=== PATIENT | female | born 1940 | race Caucasian/White ===

== ENCOUNTER 2021-05-23 09:30 | Observation (INO) ==
--- NOTE | 2021-05-23 09:33 | Emergency Department Note ---
Course Vital Signs Vital signs: Vital Signs Temperature 96.9 F L 05/23/21 09:30 Pulse Rate 83 05/23/21 09:30 Respiratory Rate 16 05/23/21 09:30 Blood Pressure 137/74 05/23/21 09:30 Pulse Oximetry (%) 98 05/23/21 09:30 Temperature 96.9 F L 05/23/21 09:30 Pulse Rate 83 05/23/21 09:30 Respiratory Rate 16 05/23/21 09:30 Blood Pressure 137/74 05/23/21 09:30 Pulse Oximetry (%) 98 05/23/21 09:30 MDM MDM Narrative Medical decision making narrative: Narrative: Medical Records Medical records reviewed: Yes I reviewed the patient's medical records. Lab Data Lab results reviewed: Yes I reviewed the patient's lab results. Radiology Data Radiology results reviewed: Yes I reviewed the patient's radiology results. Discharge Plan Patient/Caregiver Discharge Instructions Prescriptions: No Action No Known Home Meds RF: 0
[2021-05-23] MEDS ORDERED: 0.9 % SODIUM CHLORIDE 1,000 ML IV ONE (09:55)
[2021-05-23] MEDS ORDERED: FAMOTIDINE/PF 20 MG/2 ML VIAL IV ONE (09:57)
--- NOTE | 2021-05-23 10:23 | Emergency Department Note ---
Nausea/Vomiting/Diarrhea HPI General Chief complaint: Nausea/Vomiting/Diarrhea Stated complaint: diarrhea x5 days Time Seen by Provider: 05/23/21 09:31 Source: patient, family, RN notes reviewed and old records reviewed Mode of arrival: ambulatory Limitations: no limitations History of Present Illness HPI Narrative: Narrative: 80-year-old female complaining of diarrhea x5 days she states that she has 3-5 episodes of black diarrhea per day worse at nighttime she denies any fevers or chills any nausea or vomiting any dizziness weakness or lightheadedness. She denies any abdominal pain he denies any bright red blood per rectum has had this in the past. She denies any hematuria dysuria or frequency. She takes 2-4 Advil per day. MD complaint: diarrhea Onset (ago): day(s) (5) Description of Diarrhea: other (Black) Associated Abdominal Pain: No Severity: moderate Consistency: intermittent Improves with: none Worsens with: bowel movement Associated symptoms: Denies myalgias, chest pain, cough, diaphoresis, fever/chills, headaches, loss of appetite, malaise, nausea/vomiting, rash, dysuria, shortness of breath, syncope and weakness Related Data Home Medications Medication Instructions Recorded Confirmed No Known Home Meds 05/23/21 05/23/21 Allergies Allergy/AdvReac Type Severity Reaction Status Date / Time No Known Drug Allergies Allergy Verified 05/23/21 09:32 Review of Systems ROS ROS Narrative: Narrative: All systems ED: reviewed and negative except as stated. PFSH Narrative Patient History Narrative: Narrative: Medical/Surgical/Family History All Active Problems (Updated 05/23/21 @ 14:18 by Joss Levy MD) Upper GI bleed (Acute) Social History Smoking Status: Current every day smoker Exam Narrative Narrative: Narrative: General Limitations: no limitations General appearance: Present alert, in no apparent distress and thin Head Head: Present atraumatic, normocephalic and normal inspection Eye Eye: Present normal appearance, PERRL and EOMI; Absent scleral icterus and conjunctival injection ENT ENT: Present normal exam, normal oropharynx and mucous membranes moist Neck Neck: Present normal inspection, full ROM and trachea midline; Absent lymphadenopathy and thyromegaly Chest Chest: Present normal inspection and symmetric chest wall rise Respiratory Respiratory: Present normal lung sounds bilaterally; Absent respiratory distress, wheezes, stridor, accessory muscle use and prolonged expiratory phase Cardiovascular Cardiovascular: Present regular rate and normal rhythm; Absent systolic murmur and diastolic murmur Adbominal Abdominal: Present soft; Absent distention, tenderness, guarding, rebound, rigidity, organomegaly and mass Rectal Rectal: Present normal inspection, normal rectal tone, heme (+) stool and black stool Extremities Extremities: Absent pedal edema, pretibial edema and calf tenderness Back Back: Present normal inspection and full ROM; Absent tenderness, CVA tenderness (R), CVA tenderness (L) and spinous process tenderness Neurological Neurological: Present alert, oriented X3 and normal gait Psychiatric Psychiatric: Present normal affect and normal mood Skin Skin: Present warm (WNL) and dry Course Vital Signs Vital signs: Vital Signs Temperature 96.9 F L 05/23/21 09:30 Pulse Rate 83 05/23/21 09:30 Respiratory Rate 16 05/23/21 09:30 Blood Pressure 137/74 05/23/21 09:30 Pulse Oximetry (%) 98 05/23/21 09:30 Temperature 98.0 F 05/23/21 12:38 Pulse Rate 79 05/23/21 12:38 Respiratory Rate 16 05/23/21 12:38 Blood Pressure 138/71 05/23/21 12:38 Pulse Oximetry (%) 98 05/23/21 12:38 MDM MDM Narrative Medical decision making narrative: Narrative: 80-year-old female came in complaining of black diarrhea. She was melanotic and strongly guaiac positive stool on rectal exam. Her hemoglobin and hematocrit were stable. Patient's BUN was 29 I believe this is more reflective of digested blood then of dehydration hemodynamically she was stable I discussed the patient with Dr. Kevin Loomis who graciously agreed to evaluate her in the emergency department for EGD. Differential Diagnosis Differential Diagnosis: UGIB, LGIB, gastritis, gastroenteritis, SBO Medical Records Medical records reviewed: Yes I reviewed the patient's medical records. Lab Data Lab results reviewed: Yes I reviewed the patient's lab results. Result diagrams: 05/23/21 10:05 05/23/21 10:05 Labs: Lab Results 05/23/21 05/23/21 05/23/21 Range/Units 10:05 10:05 10:05 WBC 11.0 (4.5-11.0) K/mcL RBC 4.18 (4.00-5.20) M/mcL Hgb 12.7 (12.0-15.0) g/dL Hct 37.9 (36.0-48.0) % MCV 90.7 (80.0-100.0) fL MCH 30.4 (26.0-34.0) pg MCHC 33.5 (31.0-36.0) g/dL RDW 13.2 (11.5-14.5) % Plt Count 304 (140-440) K/mcL MPV 10.6 H (7.4-10.4) fL Neut % (Auto) 73.3 (38.0-78.0) % Lymph % (Auto) 18.8 (15.0-49.0) % [place] % (Auto) 7.0 (1.0-12.0) % Eos % (Auto) 0.5 (0.0-7.0) % Baso % (Auto) 0.4 (0.0-2.0) % Lymph # (Auto) 2.07 (1.50-4.80) K/mcL [place] # (Auto) 0.77 (0.10-0.90) K/mcL Eos # (Auto) 0.06 (0.00-0.70) K/mcL Baso # (Auto) 0.04 (0.00-0.20) K/mcL Absolute Neutrophils 8.10 H (1.80-8.00) K/mcL PT 13.5 (11.9-14.5) sec INR 1.0 (0.9-1.1) VBG Lactic Acid (0.5-2.0) mmol/L Sodium 137 (133-145) mmol/L Potassium 3.0 L (3.3-5.1) mmol/L Chloride 103 (96-108) mmol/L Carbon Dioxide 23 (22-30) mmol/L Anion Gap 11.0 (8.0-16.0) BUN 29 H (8-23) mg/dL Creatinine 1.0 (0.6-1.1) mg/dL GFR Calculation 53 Glucose 131 H (70-105) mg/dL Calcium 9.1 (8.6-10.4) mg/dL Total Bilirubin 0.3 (0.1-1.0) mg/dL AST 22 (<32) U/L ALT 12 (<40) U/L Alkaline Phosphatase 40 (39-117) U/L Total Protein 6.3 (5.9-8.4) gm/dL Albumin 3.9 (3.2-5.2) gm/dL Globulin 2.4 (2.2-3.7) gm/dL Albumin/Globulin Ratio 1.6 (1.0-2.3) Lipase 35 (7-60) U/L Urine Color Urine Appearance (Clear) Urine pH (5.0-9.0) Ur Specific [place] (1.000-1.035) Urine Protein (Negative) mg/dL Urine Glucose (UA) (Negative) mg/dL Urine Ketones (Negative) mg/dL Urine Occult Blood (Negative) mg/dL Urine Nitrate (Negative) Urine Bilirubin (Negative) mg/dL Urine Urobilinogen mg/dL Ur Leukocyte Esterase (Negative) /ug Urine RBC (0-3) /hpf Urine WBC (0-4) /hpf Ur Squamous Epith Cells (0-4) /hpf Urine Bacteria (0) /hpf Hyaline Casts (0-2) /lph Urine Mucus (None) /hpf 05/23/21 05/23/21 Range/Units 10:05 10:50 WBC (4.5-11.0) K/mcL RBC (4.00-5.20) M/mcL Hgb (12.0-15.0) g/dL Hct (36.0-48.0) % MCV (80.0-100.0) fL MCH (26.0-34.0) pg MCHC (31.0-36.0) g/dL RDW (11.5-14.5) % Plt Count (140-440) K/mcL MPV (7.4-10.4) fL Neut % (Auto) (38.0-78.0) % Lymph % (Auto) (15.0-49.0) % [place] % (Auto) (1.0-12.0) % Eos % (Auto) (0.0-7.0) % Baso % (Auto) (0.0-2.0) % Lymph # (Auto) (1.50-4.80) K/mcL [place] # (Auto) (0.10-0.90) K/mcL Eos # (Auto) (0.00-0.70) K/mcL Baso # (Auto) (0.00-0.20) K/mcL Absolute Neutrophils (1.80-8.00) K/mcL PT (11.9-14.5) sec INR (0.9-1.1) VBG Lactic Acid 0.8 (0.5-2.0) mmol/L Sodium (133-145) mmol/L Potassium (3.3-5.1) mmol/L Chloride (96-108) mmol/L Carbon Dioxide (22-30) mmol/L Anion Gap (8.0-16.0) BUN (8-23) mg/dL Creatinine (0.6-1.1) mg/dL GFR Calculation Glucose (70-105) mg/dL Calcium (8.6-10.4) mg/dL Total Bilirubin (0.1-1.0) mg/dL AST (<32) U/L ALT (<40) U/L Alkaline Phosphatase (39-117) U/L Total Protein (5.9-8.4) gm/dL Albumin (3.2-5.2) gm/dL Globulin (2.2-3.7) gm/dL Albumin/Globulin Ratio (1.0-2.3) Lipase (7-60) U/L Urine Color Yellow Urine Appearance Hazy A (Clear) Urine pH 6.0 (5.0-9.0) Ur Specific [place] 1.013 (1.000-1.035) Urine Protein Neg (Negative) mg/dL Urine Glucose (UA) Neg (Negative) mg/dL Urine Ketones Neg (Negative) mg/dL Urine Occult Blood Neg (Negative) mg/dL Urine Nitrate Neg (Negative) Urine Bilirubin Neg (Negative) mg/dL Urine Urobilinogen Neg mg/dL Ur Leukocyte Esterase Neg (Negative) /ug Urine RBC 2 (0-3) /hpf Urine WBC 3 (0-4) /hpf Ur Squamous Epith Cells 5 H (0-4) /hpf Urine Bacteria None (0) /hpf Hyaline Casts 4 H (0-2) /lph Urine Mucus Few A (None) /hpf ED POC Tests ED POC Tests: CORNELIUS - SARS Antigen Negative EKG Data EKG #1: EKG attestation: Yes I reviewed and interpreted this EKG. EKG shows normal: sinus rhythm Rate: normal (73) Rhythm: NSR [place]/QRS: normal Heart block present: None ST segment elevation in: None ST segment depression in: None Q waves: None T wave inversions noted in: None Hyperacute T waves: None QTc: normal QRS morphology: Present normal Interpretation: normal EKG Pulse Oximetry Data Pulse Ox %: 98 Interpretation: 98% on room air within normal limits Discharge Plan Patient/Caregiver Discharge Instructions Pt seen by EMB[employer] SYSTEM[employer] SOFTWARE ENGINEER/PA only: No Clinical Impression: Upper GI bleed Patient Disposition: Xfer As Outpt/Obs ([facility]) Condition: Fair Discharge Date/Time: 05/23/21 11:52
[2021-05-23 10:51] LABS: Basophils # (Auto) 0.04 K/mcL (0.00-0.20); Basophils % (Auto) 0.4 % (0.0-2.0); Eosinophils # (Auto) 0.06 K/mcL (0.00-0.70); Eosinophils % (Auto) 0.5 % (0.0-7.0); Hematocrit 37.9 % (36.0-48.0); Hemoglobin 12.7 g/dL (12.0-15.0); Lymphocytes # (Auto) 2.07 K/mcL (1.50-4.80); Lymphocytes % (Auto) 18.8 % (15.0-49.0); Mean Cell Volume 90.7 fL (80.0-100.0); Mean Corpuscular HGB Conc 33.5 g/dL (31.0-36.0); Mean Platelet Volume 10.6 fL (7.4-10.4); Monocytes # (Auto) 0.77 K/mcL (0.10-0.90); Neutrophils % (Auto) 73.3 % (38.0-78.0); Platelet Count 304 K/mcL (140-440); RBC 4.18 M/mcL (4.00-5.20); Red Cell Distribution Width 13.2 % (11.5-14.5)
[2021-05-23 11:16] LABS: ALT/SGPT 12 U/L (<40); AST/SGOT 22 U/L (<32); Albumin 3.9 gm/dL (3.2-5.2); Albumin/Globulin Ratio 1.6 (1.0-2.3); Alkaline Phosphatase 40 U/L (39-117); Bilirubin,Total 0.3 mg/dL (0.1-1.0); Blood Urea Nitrogen 29 mg/dL (8-23); Calcium 9.1 mg/dL (8.6-10.4); Carbon Dioxide 23 mmol/L (22-30); Chloride 103 mmol/L (96-108); Globulin 2.4 gm/dL (2.2-3.7); Glomerular Filtration Rate 53; Glucose 131 mg/dL (70-105); Prothrombin Time 13.5 sec (11.9-14.5)
--- NOTE | 2021-05-23 12:07 | General Surg History&Physical ---
HPI History of Present Illness Patient information: Note initiated : 05/23/21 at 12:04 pm Service Date, if different from initiated Date: [] Patient: Gabriela Middleton 80 y/o F admitted on for diarrhea x5 days. Chief Complaint: Nausea, emesis with diarrhea and dark stools History of present illness: Ms. Middleton is a 80 year old F who was in her normal state of health until several days ago when she started having crampy upper abdominal pain and dark diarrhea. She reports that she is never had anything like this before. Its been intermittent over the last 5 days. She presented to the emergency room where her stools are guaiac positive, dark and melanotic. This is most consistent with an upper GI bleed. She denies any fevers or chills. She does not recall when her last colorectal screening was, she reports not having had a EGD at all in the past. She does report daily use of NSAIDs. Review of Systems Review of systems: All systems are reviewed, negative other than above PFSH PFSH All Active Problems Upper GI bleed (Acute) MEDS/ALLERGIES Home Medications and Allergies Home Medications Medication Instructions Recorded Confirmed Type No Known Home Meds 05/23/21 05/23/21 History Allergies Allergy/AdvReac Type Severity Reaction Status Date / Time No Known Drug Allergies Allergy Verified 05/23/21 09:32 Physical Examination Vital Signs Vital signs: Temp Pulse Resp BP Pulse Ox 96.9 F L 72 16 130/66 99 05/23/21 09:38 05/23/21 11:31 05/23/21 09:38 05/23/21 11:31 05/23/21 11:31 General physical appearance General physical exam: well developed, well nourished and no distress Eyes Eye exam: PERRL and normal ocular movement ENT ENT exam: normal pinna, normal nares, normal mucosa, no hearing loss and no congestion Head Head exam IM: Present atraumatic and normocephalic Neck Neck exam: no masses, no bruits, trachea midline, no lymphadenopathy and no venous distension Cardiovascular Cardiovascular exam IM: Present normal rate and rhythm Respiratory Respiratory exam: normal expansion, normal respiratory effort, clear to percussion and clear to auscultation Abdomen Abdomen: Present soft, non tender and bowel sounds Hernia: Present none Genitourinary Genitourinary (Female): Present normal external genitalia Rectum Rectum: Present normal sphincter tone, no hemorrhoids, no tenderness, no masses and no bleeding Integumentary Integumentary: Present no rash, no growths and no abnormal pigmentation Neurologic Neurologic: Present normal coordination and normal sensation Musculoskeletal Musculoskeletal: Present normal gait and normal posture Psychiatric Psychiatric: Present oriented to time, oriented to person, oriented to place, speech is normal and memory intact Results Labs Result diagrams: 05/23/21 10:05 05/23/21 10:05 Labs: Abnormal lab results 05/23/21 05/23/21 Range/Units 10:05 10:05 MPV 10.6 H (7.4-10.4) fL Absolute Neutrophils 8.10 H (1.80-8.00) K/mcL Potassium 3.0 L (3.3-5.1) mmol/L BUN 29 H (8-23) mg/dL Glucose 131 H (70-105) mg/dL Diabetes panel 05/23/21 Range/Units 10:05 Sodium 137 (133-145) mmol/L Potassium 3.0 L (3.3-5.1) mmol/L Chloride 103 (96-108) mmol/L Carbon Dioxide 23 (22-30) mmol/L BUN 29 H (8-23) mg/dL Creatinine 1.0 (0.6-1.1) mg/dL Glucose 131 H (70-105) mg/dL Calcium 9.1 (8.6-10.4) mg/dL AST 22 (<32) U/L ALT 12 (<40) U/L Alkaline Phosphatase 40 (39-117) U/L Total Protein 6.3 (5.9-8.4) gm/dL Albumin 3.9 (3.2-5.2) gm/dL Calcium panel 05/23/21 Range/Units 10:05 Calcium 9.1 (8.6-10.4) mg/dL Albumin 3.9 (3.2-5.2) gm/dL Pituitary panel 05/23/21 Range/Units 10:05 Sodium 137 (133-145) mmol/L Potassium 3.0 L (3.3-5.1) mmol/L Chloride 103 (96-108) mmol/L Carbon Dioxide 23 (22-30) mmol/L BUN 29 H (8-23) mg/dL Creatinine 1.0 (0.6-1.1) mg/dL Glucose 131 H (70-105) mg/dL Calcium 9.1 (8.6-10.4) mg/dL Adrenal panel 05/23/ Range/Units 10:05 Sodium 137 (133-145) mmol/L Potassium 3.0 L (3.3-5.1) mmol/L Chloride 103 (96-108) mmol/L Carbon Dioxide 23 (22-30) mmol/L BUN 29 H (8-23) mg/dL Creatinine 1.0 (0.6-1.1) mg/dL Glucose 131 H (70-105) mg/dL Calcium 9.1 (8.6-10.4) mg/dL Total Bilirubin 0.3 (0.1-1.0) mg/dL AST 22 (<32) U/L ALT 12 (<40) U/L Alkaline Phosphatase 40 (39-117) U/L Total Protein 6.3 (5.9-8.4) gm/dL Albumin 3.9 (3.2-5.2) gm/dL All other labs normal. A/P Assessment and plan (1) Upper GI bleed: Status: Acute Narrative A/P Narrative: This is a pleasant 80-year-old female who presents hemodynamically stable with normal H&H with 5 days of dark melanotic bloody stools. Discussed with her the possibility of an upper GI bleed and the need to do an EGD to rule out sources. She verbalizes understanding, all questions are answered and she desires. Plan: EGD, admit for observation with repeat H&H in the a.m., possible need for colonoscopy depending on findings of EGD. Thank you very much for this consultation. Time Spent With Patient Time: Total time spent is greater than 50% in coordination of care (as documented) at patient's floor/unit and/or counseling patient:
[2021-05-23] MEDS ORDERED: PROPOFOL 200 MG/20 ML VIAL IV ONE (12:17)
[2021-05-23] MEDS ORDERED: PEG 3350/NA SULF,BICARB,CL/KCL 4,000 ML ORAL.SOL PO ONE (12:29)
[2021-05-23] MEDS ORDERED: ONDANSETRON 4 MG/2 ML VIAL IV PRN (12:29)
--- NOTE | 2021-05-23 12:29 | EGD Procedure Note ---
EGD Procedure Notes Procedure Information Patient information: Note initiated : 05/23/21 at 12:28 pm Service Date: Patient: Gabriela Middleton 80 y/o F admitted on for diarrhea x5 days. Pre-op diagnosis general: Upper GI bleed Post-Op Diagnosis general: No evidence of bleed Procedure: Esophogogastroduodenoscopy Procedure Narrative: After risk benefits and alternatives to the procedure were discussed with the patient at length she verbalized understanding and desire to continue with the procedure. Patient was taken to endoscopy. Surgical timeout was taken to verify patient and procedure being performed, monitored anesthesia care was poultry culler throughout the case . An adult gastroscope was entered and advanced under direct vision into the second portion of the duodenum. The antrum was fully inspected, the scope was retroflexed in the stomach. Full examination revealed full normal exam to the second portion of the duodenum, no evidence of past or current bleeding. The GE junction was at 35 cm and the esophagus was normal on full exam. Patient tolerated procedure well. Assessment: Small hiatal hernia. No evidence for bleed. Image EGD: 1. Full normal exam 2. Small hiatal hernia
[2021-05-23 12:32] LABS: Appearance,Urine HAZY (Clear); Bilirubin,Urine NEG (Negative); Color,Urine YELLOW; Glucose,Urine (UA) NEG (Negative); Ketones,Urine NEG (Negative); Leukocyte Esterase,Urine NEG /ug (Negative); Mucus,Urine FEW /hpf; Nitrate,Urine NEG (Negative); Protein,Urine NEG (Negative); Specific Gravity,Urine 1.013 (1.000-1.035); Urine Blood NEG (Negative); Urine Hyaline Cast 4 /lph (0-2); Urine RBC 2 /hpf (0-3); Urine Squamous Epithelial Cell 5 /hpf (0-4); Urine WBC 3 /hpf (0-4); Urobilinogen,Urine NEG
--- NOTE | 2021-05-23 14:43 | EKG ---
[facility] Test Date: 2021-05-23 Pat Name: Gabriela Middleton Department: ED Room: Gender: Female Automatic Clipper: sb : 1940 Requested By: Joss Levy Order Number: [id number] Reading MD: Christian Knight M.D. Measurements Intervals [place] Rate: 73 P: 40 AK: 140 QRS: -1 QRSD: 83 T: 56 QT: 401 QTc: 442 Interpretive Statements Sinus rhythm Electronically Signed On 05-23-2021 14:42:27 PDT by Christian Knight M.D. /store/[email or web address]/[id number]
[2021-05-23] MEDS: LACTATED RINGERS 1,000 ML IV SCH (14:46)
[2021-05-23] MEDS ORDERED: POTASSIUM CHLORIDE 40 MEQ in DEXTROSE 5% IN WATER 500 ML IV ONE (20:06)
[2021-05-23] MEDS ORDERED: SENNOSIDES 1 TABLET PO SCH (21:00)
[2021-05-23] MEDS: DOCUSATE SODIUM 100 MG CAPSULE PO SCH (21:03)
[2021-05-23] MEDS ORDERED: POTASSIUM CHLORIDE 20 MEQ/10 ML VIAL IV ONE (21:34)
[2021-05-24] MEDS: LACTATED RINGERS 1,000 ML IV SCH ×2 (01:42→06:49)
[2021-05-24 06:25] LABS: Basophils # (Auto) 0.06 K/mcL (0.00-0.20); Basophils % (Auto) 0.7 % (0.0-2.0); Eosinophils % (Auto) 1.1 % (0.0-7.0); Hematocrit 35.5 % (36.0-48.0); Hemoglobin 11.9 g/dL (12.0-15.0); Lymphocytes # (Auto) 1.83 K/mcL (1.50-4.80); Lymphocytes % (Auto) 20.2 % (15.0-49.0); Mean Cell Volume 91.7 fL (80.0-100.0); Mean Corpuscular HGB Conc 33.5 g/dL (31.0-36.0); Mean Platelet Volume 10.9 fL (7.4-10.4); Monocytes # (Auto) 0.72 K/mcL (0.10-0.90); Platelet Count 273 K/mcL (140-440); RBC 3.87 M/mcL (4.00-5.20); Red Cell Distribution Width 13.4 % (11.5-14.5)
[2021-05-24 06:52] LABS: Blood Urea Nitrogen 14 mg/dL (8-23); Calcium 8.7 mg/dL (8.6-10.4); Carbon Dioxide 23 mmol/L (22-30); Chloride 108 mmol/L (96-108); Glomerular Filtration Rate 81; Glucose 71 mg/dL (70-105)
[2021-05-24] MEDS: DOCUSATE SODIUM 100 MG CAPSULE PO SCH (07:21)
[2021-05-24] MEDS ORDERED: MIDAZOLAM 2 MG/2 ML VIAL IV SCH (10:45)
[2021-05-24] MEDS ORDERED: PROPOFOL 200 MG/20 ML VIAL IV SCH (10:45)
[2021-05-24] MEDS ORDERED: PROPOFOL 200 MG/20 ML VIAL IV ONE (11:36)
--- NOTE | 2021-05-24 12:00 | Colonoscopy Procedure Note ---
Colonoscopy Procedure Notes Procedure Information Patient information: Note initiated : 05/24/21 at 11:59 am Service Date: 05/23/21 Patient: Gabriela Middleton 80 y/o F admitted on 05/23/21 for diarrhea x5 days. Pre-op diagnosis general: GI bleed Post-op diagnosis general: Same Procedure: Colonoscopy Procedure narrative: After risk benefits and alternatives to the procedure were discussed with the patient at length she verbalized understanding and desire to continue with the procedure. Patient was taken to endoscopy and placed supine on the endoscopy table. Conscious sedation was administered throughout the case consisting of 50 mcg of propofol. Digital rectal exam was performed which was within normal limits other than mild external hemorrhoids without evidence of bleeding. An adult colonoscope was advanced under direct vision to the cecum which was identified by the kaguyuk's foot, the appendiceal orifice and opening to the terminal ileum. Full exam upon removal of scope was significant for scattered diverticulosis without evidence of bleed, descending colon mild inflammation consistent with colitis and internal and external hemorrhoids without evidence of active bleed. Retroflexion in the rectum was within normal limits. Assessment: Hemorrhoids without evidence of active bleed. Mild colitis without evidence of active bleed. Sigmoid diverticulosis without evidence of active bleed Image Colon: 1. Full exam, no evidence of GI bleed.
--- NOTE | 2021-05-24 13:22 | Discharge Summary ---
Discharge Provider Provider Patient information: Note initiated : 05/24/21 at 1:21 pm Service Date, if different from initiated Date: [] Patient: Gabriela Middleton 80 y/o F admitted on 05/23/21 for diarrhea x5 days. Chief Complaint: [] Date of admission: 05/23/21 12:38 Discharge date: 05/24/21 Consults: 05/23/21 Consult to Physician [CONS] Stat Comment: Consulting Provider: Kevin Loomis Reason For Exam: Physician to Consult COURSE Hospital Course Hospital course: This is a pleasant 80-year-old female who was admitted with dark melanotic stools for the last 5 days, these have been intermittent. Patient was admitted for observation, hematocrit stayed stable, she underwent an EGD which was negative followed by a colonoscopy which was significant for mild diverticulosis without evidence of bleed, external hemorrhoids and mild colitis without evidence of active bleeding. Discharge diagnosis: GI bleed most consistent with mild colitis. Time Spent with Patient Time attestation: Total time spent providing and/or coordinating discharge services: Physical Examination Vital Signs Vital signs: Temp Pulse Resp BP Pulse Ox 96.9 F L 71 20 161/69 99 05/24/21 12:20 05/24/21 12:20 05/24/21 12:20 05/24/21 12:20 05/24/21 12:20 Discharge Plan Patient/Caregiver Discharge Instructions Activity: increase activity as tolerated Diet: Regular Diet Instructions: Rectal Bleeding (GEN), Colitis (ED), Colonoscopy (GEN) Activity Restrictions/Additional Instructions: This discharge packet is provided to you to help keep you informed about your care. We want to ensure you get everything you need when you go home. You will also be receiving a call from us in a few days to follow up with you and see how you are doing since your discharge. This gives us a chance to listen to any concerns you maybe experiencing since you were discharged or any additional needs you may have, as well as providing us feedback on your care experience. We strive to always provide excellent care and thank you for your feedback and for choosing [facility]. Prescriptions: New metronidazole 500 mg Tablet 500 mg PO Q8 7 Days Qty: 21 RF: 0 Follow Up Plan Follow up with: Herrera Ahuja DO [Physician] - (A referral is being sent to the clinic; they will contact you to schedule an appointment after reviewing you hospital visit.) Patient Disposition: Home, Self-Care Prognosis: Fair Discharge Orders: Discharge Order (Routine); Ordered 05/24/21 Ordered By: Kevin Loomis Pending Pending Pending: Resuscitation Status Full Code Diet Regular Diet Start SunMay 24 1201 Docusate Sodium (Docusate Sodium 100 Mg Capsule) 100 mg PO BID [facility] Last Admin: 05/24/21 07:21 Dose: Not Given Documented by: Admin: 05/23/21 21:03 Dose: 100 mg Documented by: CHLOE Propofol (Propofol 200 Mg/20 Ml Vial) 0 mg IV UD [facility] Stop: 05/24/21 18:44 Last Admin: 05/24/21 11:40 Dose: 100 mg Documented by: [email or web address] Senna (Sennosides 1 Tablet) 2 tab PO HS [facility] Last Admin: 05/23/21 21:03 Dose: 2 tab Documented by: CHLOE Shift Summary 05/24/21 03:05 Shift Summary by Chiquita Crain Addendum entered by Chiquita Crain RSunita 05/24/21 03:58: Pt. moved to room 120A due to impulsiveness and forgetfulness. Original Note: Diagnosis: Medical observation status for GI bleed. Brief history of present illness: Reported to ED that had abdominal pain/cramps and dark diarrhea x5 days. Positive guaiac in ED. EGD showed small hiatal hernia. Bowel prep completed 05/23, multiple clear sexton liquid stool tonight/mixed with urine. Takes Advil 3-4 times/day. Hx hemorrhoids, no jenni blood in stool tonight. Colonoscopy planned for AM, consent in front of chart. Orientation: Alert to self. Unable to state date/year, reports doesn't "keep track of that". Unable to state where she is, reoriented to "[facility]". Pt. stated she lives in [place] and has been for 25 yrs. Oxygen/Airway needs: RA Ambulation status: SBA/management of IV line. Voiding: Frequent voids, bathroom. IV access: 20g IV LFA, LR at 84mls/hr. Pain: Denies pain. Wounds: Skin intact. Discharge plans: Alarms (if applicable): Bed alarm, pt. steady on feet but is not aware of IV line. Additional Comments: Full code. VSS on RA, reports doesn't take anything for BP or have a PCP. 40mEq K+ rider given tonight for potassium 3.0. Everyday smoker, denied need for Nicotine patch. Ripped IV line in half tonight, was "tired of looking at it". May need to place in room near nurses station. Pt is cooperative and agreeable but very forgetful. Initialized on 05/24/21 03:05 - END OF NOTE
[2021-05-24] MEDS ORDERED: metroNIDAZOLE 500 MG TABLET PO SCH (14:00)
[2021-05-24] MEDS ORDERED: PNEUMOCOCCAL 23-VAL P-SAC VAC 0.5 ML SYRINGE IM ONE (14:30)
== END 2021-05-24 15:05 | disposition home or self-care (01) ==
LOC: ED 09:30 → SUR 11:49 → ICU 11:49 → SUR 11:52 → ICU 05-24 03:40
PROVIDERS: ADMIT Surgery; ATTEND Surgery